=== PATIENT | female | born 1965 | race Caucasian/White ===

== ENCOUNTER 2017-07-18 20:54 | Emergency (ER) | payer OTHER ==
--- NOTE | 2017-07-18 21:02 | PDOC ---
Rapid Medical Evaluation Time Seen by Provider: 07/18/17 20:56 Medical Evaluation: Allergies Allergy/AdvReac Type Severity Reaction Status Date / Time levofloxacin [From Levaquin] Allergy Mild Verified 02/25/16 08:42 Penicillins Allergy Mild Verified 02/25/16 08:42 Sulfa (Sulfonamide Allergy Verified 02/25/16 08:42 Antibiotics) 07/18/17 20:56 The patient presents with a chief complaint of: Panic attack for one-three hours. Pt. reports that she has been shaking and it will not stop. Tried her usual methods to stop a panic attack with no relief. Recent in the family I have performed a brief in-person evaluation of this patient; Pertinent physical exam findings: CTAB, RRR, shaking of arms. I have ordered the following: EKG The patient will proceed to the ED for further evaluation.
[2017-07-18 21:06] VITALS: BP 168/82; PULSE 78; TEMP 98.6; BMI 42.7
--- NOTE | 2017-07-18 21:53 | PDOC ---
History of Present Illness <Dalia Osei - Last Filed: 07/18/17 23:55> - History of Present Illness Initial Comments: 07/18/17 22:26 Ms. Rojas is a 51 yo female w/ pmh of HTN, migraines, and panic attacks who presents c/o a 5 hour history of arm and leg shaking with one episode of vomit. She reports that she has not had a panic attack in a few years but that this feels similar. Lately she has been under a lot of stress as her father 6 days ago. Ms. Rojas used to take xanax for her attacks but no longer has any medication. She also reports she experienced some momentary disorientation after her shaking started but that she feels better now, and that her left neck/ shoulder/arm feels "different" although she cannot explain how. The patient denies chest pain, shortness of breath, headache and dizziness. Denies fever, chills, nausea, vomit, diarrhea and constipation. Denies dysuria, frequency, urgency and hematuria. Allergies:Levaquin, penicillins, sulfa drugs <Rocky Cota - Last Filed: 07/18/17 23:57> - General Chief Complaint: Psychiatric Stated Complaint: PANIC ATTACK Time Seen by Provider: 07/18/17 20:56 Past History <Dalia Osei - Last Filed: 07/18/17 23:55> - Past Medical History Anemia: No Asthma: No Cancer: No Cardiac Disorders: No CVA: No COPD: No CHF: No Dementia: No Diabetes: No GI Disorders: Yes Disorders: No HTN: Yes Hypercholesterolemia: No Liver Disease: No Seizures: No Thyroid Disease: No - Surgical History Abdominal Surgery: No Appendectomy: No Cardiac Surgery: No Cholecystectomy: No Lung Surgery: No Neurologic Surgery: No Orthopedic Surgery: No - Suicide/Smoking/Psychosocial Hx Smoking History: Never smoked Have you smoked in the past 12 months: No Information on smoking cessation initiated: No Hx Alcohol Use: No Drug/Substance Use Hx: No Substance Use Type: None Hx Substance Use Treatment: No <Rocky Cota - Last Filed: 07/18/17 23:57> - Past Medical History Allergies/Adverse Reactions: Allergies Allergy/AdvReac Type Severity Reaction Status Date / Time levofloxacin [From Levaquin] Allergy Mild Verified 07/18/17 21:06 Penicillins Allergy Mild Verified 07/18/17 21:06 Sulfa (Sulfonamide Allergy Verified 07/18/17 21:06 Antibiotics) Home Medications: Ambulatory Orders Amlodipine Besylate [Norvasc -] 5 mg PO DAILY 11/13/12 Calcium No.1/D3/B6/FA/B12/Aloe [Vitamin D3-Aloe 1,000 Unit Tab] 1 each PO UTDICT 11/13/12 Cyanocobalamin [Vitamin B12 -] 1,000 mcg PO UTDICT 11/13/12 Metoprolol Tartrate [Lopressor -] 75 mg PO BID 11/13/12 Omeprazole [Prilosec (RX)] 40 mg PO DAILY 11/13/12 Review of Systems - Review of Systems Comments:: 07/18/17 22:42 GENERAL/CONSTITUTIONAL: No fever or chills. No weakness. HEAD, EYES, EARS, NOSE AND THROAT: No change in vision. No ear pain or discharge. No sore throat. CARDIOVASCULAR: No chest pain or shortness of breath RESPIRATORY: No cough, wheezing, or hemoptysis. GASTROINTESTINAL: +1 episode of vomiting earlier tonight without nausea. No diarrhea or constipation. GENITOURINARY: No dysuria, frequency, or change in urination. MUSCULOSKELETAL: No joint or muscle swelling or pain. No neck or back pain. SKIN: No rash NEUROLOGIC: No headache, vertigo, loss of consciousness, or change in strength/ sensation. ENDOCRINE: No increased thirst. No abnormal weight change HEMATOLOGIC/LYMPHATIC: No anemia, easy bleeding, or history of blood clots. ALLERGIC/IMMUNOLOGIC: No hives or skin allergy. <Rocky Cota - Last Filed: 07/18/17 23:57> *Physical Exam - Vital Signs Last Vital Signs Temp Pulse Resp BP Pulse Ox 98.6 F 78 26 H 168/82 99 07/18/17 21:03 07/18/17 21:03 07/18/17 21:03 07/18/17 21:03 07/18/17 21:03 <Dalia Osei - Last Filed: 07/18/17 23:55> - Vital Signs Last Vital Signs Temp Pulse Resp BP Pulse Ox 98.6 F 78 26 H 168/82 99 07/18/17 21:03 07/18/17 21:03 07/18/17 21:03 07/18/17 21:03 07/18/17 21:03 - Physical Exam Comments: 07/18/17 22:43 GENERAL: Awake, alert, and fully oriented, in no acute distress HEAD: No signs of trauma, normocephalic, atraumatic EYES: PERRLA, EOMI, sclera anicteric, conjunctiva clear ENT: Auricles normal inspection, hearing grossly normal, nares patent, oropharynx clear without exudates. Moist mucosa NECK: Normal ROM, supple, no lymphadenopathy, JVD, or masses LUNGS: No distress, speaks full sentences, clear to auscultation bilaterally HEART: Regular rate and rhythm, normal S1 and S2, no murmurs, rubs or gallops, peripheral pulses normal and equal bilaterally. ABDOMEN: Soft, nontender, normoactive bowel sounds. No guarding, no rebound. No masses EXTREMITIES: Normal inspection, Normal range of motion, no edema. No clubbing or cyanosis. NEUROLOGICAL: Cranial nerves II through XII grossly intact. Normal speech, normal gait, no focal sensorimotor deficits SKIN: Warm, Dry, normal turgor, no rashes or lesions noted. <Rocky Cota - Last Filed: 07/18/17 23:57> ED Treatment Course - Medications Given in the ED: ED Medications Discontinued Medications Generic Name Dose Route Start Last Admin Trade Name Freq PRN Reason Stop Dose Admin Metoprolol Tartrate 75 mg 07/18/17 22:44 07/18/17 23:20 Lopressor - PO 07/18/17 22:45 75 mg ONCE ONE Administration <Dalia Osei - Last Filed: 07/18/17 23:55> Medical Decision Making - Medical Decision Making 07/18/17 23:45 Ms. Rojas presents w/ symptoms concerning for panic disorder. Patient has been under a lot of stress lately and has been getting little rest. Patients BP decreased with repeat 75mg metoprolol and reports resolution of symptoms. Will d /c to home with instructions to f/u with PCP this week for further evaluation. <Rocky Cota - Last Filed: 07/18/17 23:57> *DC/Admit/Observation/Transfer - Discharge Dispostion Admit: No <Dalia Osei - Last Filed: 07/18/17 23:55> <Rocky Cota - Last Filed: 07/18/17 23:57> Diagnosis at time of Disposition: Panic attack - Discharge Dispostion Disposition: HOME Condition at time of disposition: Stable - Referrals Referrals: Jose Villegas MD [Primary Care Provider] - - Patient Instructions Printed Discharge Instructions: DI for Panic Disorder Additional Instructions: Please return if any further fever, pain, or other concerning symptoms. Follow- up with your primary care provider in 1-2 days. - Post Discharge Activity
[2017-07-18] MEDS ORDERED: METOPROLOL TARTRATE 50 MG TABLET (FP) PO ONE (22:44)
[2017-07-18] MEDS ORDERED: METOPROLOL TARTRATE 25 MG TABLET (FP) ONE (22:53)
[2017-07-18] MEDS ORDERED: METOPROLOL TARTRATE 50 MG TABLET (FP) ONE (22:53)
--- NOTE | 2017-07-18 23:56 | PDOC ---
Attending Attestation - Resident Resident Name: Rocky Cota - ED Attending Attestation I have performed the following: I have examined & evaluated the patient, The case was reviewed & discussed with the resident, I agree w/resident's findings & plan - HPI HPI: 07/18/17 23:55 Pt comes with a panic attack. - Physicial Exam PE: 07/18/17 23:56 Normal exam; heart lungs, neuro normal exam. Abd soft nontender - Medical Decision Making 07/18/17 23:56 Follow with psychiatry.
--- NOTE | 2017-07-20 13:20 | EKG ---
Test Reason : Blood Pressure : / mmHG Vent. Rate : 065 BPM Atrial Rate : 065 BPM P-R Int : 162 ms QRS Dur : 084 ms QT Int : 416 ms P-R-T Axes : 030 009 026 degrees QTc Int : 432 ms NORMAL SINUS RHYTHM NORMAL ECG WHEN COMPARED WITH ECG OF 10-FEB-2016 09:48, NO SIGNIFICANT CHANGE WAS FOUND Confirmed by JAVED WILLIS MD ([id number]) on 07/20/2017 1:20:06 PM Referred By: Confirmed By:JAVED WILLIS MD
== END 2017-07-19 00:04 | disposition home or self-care (01) ==
LOC: JER 20:54 → JERFT 20:54 → JER 07-19 00:04
DX: F41.0 Panic disorder [episodic paroxysmal anxiety] (principal); I10 Essential (primary) hypertension
CPT/HCPCS: 93005; 93010; 99282-25

== ENCOUNTER 2022-06-17 14:11 | Emergency (ER) | payer OTHER ==
[2022-06-17 14:38] VITALS: RESP 18; TEMP 98.1; BMI 38.7
[2022-06-17 17:57] LABS: BASO % 0.2 % (0-2.0); HEMATOCRIT 41.9 % (32.4-45.2); HEMOGLOBIN 14.1 GM/dL (10.7-15.3); LYMPH % 8.1 % (8-40); MCH 28.7 pg (25.7-33.7); MCHC 33.7 g/dl (32.0-36.0); MEAN CELL VOLUME 85.2 fl (80-96); MEAN PLT VOLUME 8.7 fl (7.5-11.1); MONO % 5.1 % (3.8-10.2); NEUT % 86.6 % (42.8-82.8); PLATELET COUNT 240 10^3/uL (134-434); RBC 4.92 M/mm3 (3.60-5.2); RDW 13.8 % (11.6-15.6); WHITE BLOOD COUNT 13.9 K/mm3 (4.0-10.0)
[2022-06-17 18:18] LABS: CALCIUM 9.6 mg/dL (8.5-10.1)
[2022-06-17 18:21] LABS: CREATININE 0.7 mg/dL (0.55-1.3)
[2022-06-17 18:23] LABS: BILIRUBIN,TOTAL 0.8 mg/dL (0.2-1)
[2022-06-17] MEDS ORDERED: SODIUM CHLORIDE 0.9% 1000 ML INFUS.BAG IV ONE (19:12)
[2022-06-17] MEDS ORDERED: KETOROLAC TROMETHAMINE 15 MG/ML VIAL IVPUSH ONE (20:29)
[2022-06-17] MEDS ORDERED: KETOROLAC TROMETHAMINE 15 MG/ML VIAL ONE (20:47)
[2022-06-17 21:51] VITALS: BP 146/80; PULSE 84
== END 2022-06-17 22:54 | disposition home or self-care (01) ==
LOC: JER 14:11
PROC: 3E033GC Introduction of Other Therapeutic Substance into Peripheral Vein, Percutaneous Approach (ICD-10-PCS; principal; 2022-06-17)
DX: R07.9 Chest pain, unspecified (principal)
CPT/HCPCS: 0241U-QW; 36415; 71046-TC-FY; 71275-TC; 80053; 84484; 85025; 85379; 93005; 93010; 99285-25; Q9967